=== PATIENT | male | born 1970 | race African-American/Black ===

== ENCOUNTER 2017-05-05 14:25 | Observation (INO) | payer OTHER ==
[2017-05-05] MEDS ORDERED: Sodium Chloride 0.9% 10 ML Syringe FLUSH PRN ×2 (14:42→19:13)
[2017-05-05] MEDS ORDERED: Aspirin 81 MG Tab.Chew PO ONE (14:42)
[2017-05-05] MEDS ORDERED: Nitroglycerin 2% Oint 1 GM UD Packet TOP ONE (14:42)
[2017-05-05] MEDS ORDERED: Sodium Chloride 0.9% 1,000 ML IV SCH (14:45)
--- NOTE | 2017-05-05 14:46 | EDM.PDOC ---
ED HPI GENERAL MEDICAL PROBLEM - General Chief Complaint: Chest Pain Stated Complaint: CHEST PAIN Time Seen by Provider: 05/05/17 14:29 - History of Present Illness INITIAL COMMENTS - FREE TEXT/NARRATIVE: HISTORY AND PHYSICAL: History of present illness: Patient 46-year-old black male no significant past medical history presents with left-sided chest pain that he states he noted this morning he denies clearly associated shortness of breath palpitations nausea vomiting or other concern is no history of cardiac disease no history of hypertension diabetes or hypercholesteremia Review of systems: As per history of present illness and below otherwise all systems reviewed and negative. Past medical history: As per history of present illness and as reviewed below otherwise noncontributory. Surgical history: As per history of present illness and as reviewed below otherwise noncontributory. Social history: No reported history of drug or alcohol abuse. Family history: As per history of present illness and as reviewed below otherwise noncontributory. Physical exam: HEENT: Atraumatic, normocephalic, pupils reactive, negative for conjunctival pallor or scleral icterus, mucous membranes moist, throat clear, neck supple, nontender, trachea midline. Lungs: Clear to auscultation, breath sounds equal bilaterally, chest nontender. Heart: S1S2, regular, negative for clicks, rubs, or JVD. Abdomen: Soft, nondistended, nontender. Negative for masses or hepatosplenomegaly. Negative for costovertebral tenderness. Pelvis: Stable nontender. Genitourinary: Deferred. Rectal: Deferred. Extremities: Atraumatic, negative for cords or calf pain. Neurovascular unremarkable. Neuro: Awake, alert, oriented. Cranial nerves II through XII unremarkable. Cerebellum unremarkable. Motor and sensory unremarkable throughout. Exam nonfocal. Diagnostics: CBC CMP troponin PT/INR d-dimer chest x-ray EKG Therapeutics: IV O2 monitor aspirin 324 mg Nitropaste 1 inch Impression: #1 chest pain Definitive disposition and diagnosis as appropriate pending reevaluation and review of above. chest area Pain Score (Numeric/FACES): 1 - Related Data Allergies Allergy/AdvReac Type Severity Reaction Status Date / Time No Known Allergies Allergy Verified 05/05/17 14:30 Home Meds: Home Meds . [No Known Home Meds] 05/05/17 [History] Past Medical History HEENT History: Reports: Other (See Below) Other HEENT History: Wearing Glasses Cardiovascular History: Reports: High Cholesterol Respiratory History: Reports: None Gastrointestinal History: Reports: None Genitourinary History: Reports: None Musculoskeletal History: Reports: None Neurological History: Reports: None Psychiatric History: Reports: None Endocrine/Metabolic History: Reports: None Hematologic History: Reports: None Immunologic History: Reports: None Oncologic (Cancer) History: Reports: None Dermatologic History: Reports: None - Infectious Disease History Infectious Disease History: Reports: None Social & Family History - Family History Family Medical History: Noncontributory - Tobacco Use Smoking Status *Q: Never Smoker Second Hand Smoke Exposure: No - Caffeine Use Caffeine Use: Reports: Coffee, Tea - Alcohol Use Days Per Week of Alcohol Use: 0 - Recreational Drug Use Recreational Drug Use: No ED ROS GENERAL - Review of Systems Review Of Systems: ROS reveals no pertinent complaints other than HPI. ED EXAM, GENERAL - Physical Exam Exam: See Below (See dictation) Course - Vital Signs Last Recorded V/S: Last Vital Signs Temp 36.6 C 05/05/17 14:31 Pulse 75 05/05/17 14:55 Resp 18 05/05/17 14:55 BP 120/72 05/05/17 14:55 Pulse Ox 97 05/05/17 14:55 - Orders/Labs/Meds Orders: Active Orders 24 hr Category Date Time Status Cardiac Monitoring [RC] . DIRECTED Care 05/05/17 14:39 Active EKG Documentation Completion [RC] STAT Care 05/05/17 14:39 Active Oxygen Therapy, ED [RC] ASDIRECTED Care 05/05/17 14:39 Active Pulse Oximetry [RC] ASDIRECTED Care 05/05/17 14:39 Active Chest 1V Frontal [CR] Stat Exams 05/05/17 14:42 Taken Sodium Chloride 0.9% [Normal Saline] 1,000 ml Med 05/05/17 14:45 Active IV STAT Sodium Chloride 0.9% [Saline Flush] Med 05/05/17 14:42 Active 10 ml FLUSH ASDIRECTED PRN Sodium Chloride 0.9% [Saline Flush] Med 05/05/17 14:42 Active 2.5 ml FLUSH ASDIRECTED PRN Saline Lock Insert [OM.PC] Stat Oth 05/05/17 14:39 Ordered Medication Orders Sodium Chloride (Normal Saline) 1,000 mls @ 125 mls/hr IV STAT AMALIA Last Admin: 05/05/17 14:52 Dose: 125 mls/hr Sodium Chloride (Saline Flush) 10 ml FLUSH ASDIRECTED PRN PRN Reason: Keep Vein Open Last Admin: 05/05/17 14:53 Dose: 10 ml Sodium Chloride (Saline Flush) 2.5 ml FLUSH ASDIRECTED PRN PRN Reason: Keep Vein Open Last Admin: 05/05/17 14:52 Dose: 2.5 ml Labs: Laboratory Tests 05/05/17 05/05/17 05/05/17 Range/Units 14:52 14:52 14:52 WBC 6.80 (4.0-11.0) K/uL RBC 4.82 (4.50-5.90) M/uL Hgb 14.4 (13.0-17.0) g/dL Hct 40.9 (38.0-50.0) % MCV 84.9 (80.0-98.0) fL MCH 29.9 (27.0-32.0) pg MCHC 35.2 (31.0-37.0) g/dL RDW Std Deviation 42.2 (28.0-62.0) fl RDW Coeff of Neha 14 (11.0-15.0) % Plt Count 188 (150-400) K/uL MPV 9.80 (7.40-12.00) fL Neut % (Auto) 30.0 L (48.0-80.0) % Lymph % (Auto) 59.4 H (16.0-40.0) % [place] % (Auto) 6.8 (0.0-15.0) % Eos % (Auto) 3.5 (0.0-7.0) % Baso % (Auto) 0.3 (0.0-1.5) % Neut # (Auto) 2.0 (1.4-5.7) K/uL Lymph # (Auto) 4.0 H (0.6-2.4) K/uL [place] # (Auto) 0.5 (0.0-0.8) K/uL Eos # (Auto) 0.2 (0.0-0.7) K/uL Baso # (Auto) 0.0 (0.0-0.1) K/uL INR 0.99 (0.86-1.11) D-Dimer, Quantitative (0.0-0.52) mg/LFEU Sodium 138 (136-146) mmol/L Potassium 4.2 (3.5-5.1) mmol/L Chloride 106 (98-110) mmol/L Carbon Dioxide 22 (21-31) mmol/L BUN 11 (6.0-23.0) mg/dL Creatinine 1.0 (0.6-1.5) mg/dL Est Cr Clr Drug Dosing 92.30 mL/min Estimated GFR (MDRD) > 60.0 ml/min Glucose 130 H (60-110) mg/dL Calcium 8.9 (8.8-10.8) mg/dL Total Bilirubin 0.5 (0.1-1.5) mg/dL AST 17 (5-40) IU/L ALT 28 (8-54) IU/L Alkaline Phosphatase 71 (40-150) Troponin I (0.0-0.29) NG/ML Total Protein 7.4 (6.0-8.0) g/dL Albumin 4.1 (3.5-5.0) g/dL Globulin 3.3 (2.0-3.5) g/dL Albumin/Globulin Ratio 1.2 L (1.3-2.8) 05/05/17 05/05/17 Range/Units 14:52 14:52 WBC (4.0-11.0) K/uL RBC (4.50-5.90) M/uL Hgb (13.0-17.0) g/dL Hct (38.0-50.0) % MCV (80.0-98.0) fL MCH (27.0-32.0) pg MCHC (31.0-37.0) g/dL RDW Std Deviation (28.0-62.0) fl RDW Coeff of Neha (11.0-15.0) % Plt Count (150-400) K/uL MPV (7.40-12.00) fL Neut % (Auto) (48.0-80.0) % Lymph % (Auto) (16.0-40.0) % [place] % (Auto) (0.0-15.0) % Eos % (Auto) (0.0-7.0) % Baso % (Auto) (0.0-1.5) % Neut # (Auto) (1.4-5.7) K/uL Lymph # (Auto) (0.6-2.4) K/uL [place] # (Auto) (0.0-0.8) K/uL Eos # (Auto) (0.0-0.7) K/uL Baso # (Auto) (0.0-0.1) K/uL INR (0.86-1.11) D-Dimer, Quantitative < 0.19 (0.0-0.52) mg/LFEU Sodium (136-146) mmol/L Potassium (3.5-5.1) mmol/L Chloride (98-110) mmol/L Carbon Dioxide (21-31) mmol/L BUN (6.0-23.0) mg/dL Creatinine (0.6-1.5) mg/dL Est Cr Clr Drug Dosing mL/min Estimated GFR (MDRD) ml/min Glucose (60-110) mg/dL Calcium (8.8-10.8) mg/dL Total Bilirubin (0.1-1.5) mg/dL AST (5-40) IU/L ALT (8-54) IU/L Alkaline Phosphatase (40-150) Troponin I < 0.10 (0.0-0.29) NG/ML Total Protein (6.0-8.0) g/dL Albumin (3.5-5.0) g/dL Globulin (2.0-3.5) g/dL Albumin/Globulin Ratio (1.3-2.8) Meds: Medications Generic Name Dose Route Start Last Admin Trade Name Freq PRN Reason Stop Dose Admin Sodium Chloride 1,000 mls @ 125 mls/hr 05/05/17 14:45 05/05/17 14:52 Normal Saline IV 125 mls/hr STAT AMALIA Administration Sodium Chloride 10 ml 05/05/17 14:42 05/05/17 14:53 Saline Flush FLUSH 10 ml ASDIRECTED PRN Administration Keep Vein Open Sodium Chloride 2.5 ml 05/05/17 14:42 05/05/17 14:52 Saline Flush FLUSH 2.5 ml ASDIRECTED PRN Administration Keep Vein Open Discontinued Medications Generic Name Dose Route Start Last Admin Trade Name Freq PRN Reason Stop Dose Admin Aspirin 324 mg 05/05/17 14:42 05/05/17 14:52 Aspirin PO 05/05/17 14:43 324 mg ONETIME ONE Administration Nitroglycerin 1 gm 05/05/17 14:42 05/05/17 14:52 Nitro-Bid 2% TOP 05/05/17 14:43 1 gm ONETIME ONE Administration Departure - Departure Time of Disposition: 15:30 Disposition: Refer to Observation Condition: Good Clinical Impression: Chest pain - Discharge Information Forms: ED Department Discharge - My Orders Last 24 Hours: My Active Orders 05/05/17 14:39 Cardiac Monitoring [RC] . DIRECTED EKG Documentation Completion [RC] STAT Oxygen Therapy, ED [RC] ASDIRECTED Pulse Oximetry [RC] ASDIRECTED Saline Lock Insert [OM.PC] Stat 05/05/17 14:42 Chest 1V Frontal [CR] Stat Sodium Chloride 0.9% [Saline Flush] 10 ml FLUSH ASDIRECTED PRN Sodium Chloride 0.9% [Saline Flush] 2.5 ml FLUSH ASDIRECTED PRN 05/05/17 14:45 Sodium Chloride 0.9% [Normal Saline] 1,000 ml IV STAT - Assessment/Plan Last 24 Hours: My Active Orders 05/05/17 14:39 Cardiac Monitoring [RC] . DIRECTED EKG Documentation Completion [RC] STAT Oxygen Therapy, ED [RC] ASDIRECTED Pulse Oximetry [RC] ASDIRECTED Saline Lock Insert [OM.PC] Stat 05/05/17 14:42 Chest 1V Frontal [CR] Stat Sodium Chloride 0.9% [Saline Flush] 10 ml FLUSH ASDIRECTED PRN Sodium Chloride 0.9% [Saline Flush] 2.5 ml FLUSH ASDIRECTED PRN 05/05/17 14:45 Sodium Chloride 0.9% [Normal Saline] 1,000 ml IV STAT
[2017-05-05] MEDS: Sodium Chloride 0.9% 2.5 ML Syringe FLUSH PRN ×2 (14:52→19:31)
[2017-05-05 15:22] LABS: CHLORIDE,CL 106 mmol/L (98-110); SODIUM,NA 138 mmol/L (136-146)
--- NOTE | 2017-05-05 17:52 | PCM.HP ---
H&P History of Present Illness - General Date of Service: 05/05/17 Admit Problem/Dx: Admission Diagnosis/Problem Admission Diagnosis/Problem Chest pain Source of Information: Patient, Provider - History of Present Illness Initial Comments - Free Text/Narative: He woke up several hours before coming to the ED because he had left sided chest pain. He thought that maybe he slept wrong. He has not chest pain now. He was seen in the ED. EKG showed NSR with early repolarization . Troponin was normal. He was treated with nitroglycerin . He is pain free now. chest area Pain Score (Numeric/FACES): 1 - Related Data Allergies/Adverse Reactions: Allergies Allergy/AdvReac Type Severity Reaction Status Date / Time No Known Allergies Allergy Verified 05/05/17 14:30 Home Medications: Home Meds . [No Known Home Meds] 05/05/17 [History] Past Medical History HEENT History: Reports: Impaired Vision, Other (See Below) Other HEENT History: Wearing Glasses Cardiovascular History: Reports: High Cholesterol Respiratory History: Reports: None Gastrointestinal History: Reports: None Genitourinary History: Reports: None Musculoskeletal History: Reports: None Neurological History: Reports: None Psychiatric History: Reports: None Endocrine/Metabolic History: Reports: None. Denies: Diabetes, Type I, Diabetes , Type II Hematologic History: Reports: None Immunologic History: Reports: None Oncologic (Cancer) History: Reports: None Dermatologic History: Reports: None - Infectious Disease History Infectious Disease History: Reports: Chicken Pox - Past Surgical History Cardiovascular Surgical History: Reports: None GI Surgical History: Reports: None Social & Family History - Family History Family Medical History: Noncontributory Cardiac: Reports: Hypertension : Reports: Other (See Below) Other Family History: enlarged prostate Neurological: Reports: CVA Endocrine/Metabolic: Reports: Other (See Below) Other Endocrine/Metabolic Family History: DM, type unknown - Tobacco Use Smoking Status *Q: Never Smoker Second Hand Smoke Exposure: No - Caffeine Use Caffeine Use: Reports: Coffee, Energy Drinks, Tea Caffeine Use Comment: "Once in a while" - Alcohol Use Alcohol Use History: No Days Per Week of Alcohol Use: 0 - Recreational Drug Use Recreational Drug Use: No H&P Review of Systems - Review of Systems: Review Of Systems: See Below General: Denies: Fever, Chills, Weakness Pulmonary: Denies: Shortness of Breath, Cough, Sputum Cardiovascular: Reports: Chest Pain. Denies: Palpitations, Edema Gastrointestinal: Denies: Abdominal Pain, Anorexia, Black Stool, Bloody Stool, Decreased Appetite, Difficulty Swallowing, Hematemesis, Stool Incontinence, Vomiting Genitourinary: Denies: Dysuria, Frequency, Burning, Hematuria Skin: Denies: Cyanosis Psychiatric: Denies: Confusion Neurological: Denies: Seizure Exam - Exam Exam: See Below - Vital Signs Vital Signs: Last Vital Signs Temp 97.9 F 05/05/17 16:30 Pulse 59 L 05/05/17 16:30 Resp 16 05/05/17 16:30 BP 125/64 05/05/17 16:30 Pulse Ox 97 05/05/17 16:30 Weight: 103.147 kg - Exam General: Alert, Oriented, Cooperative HEENT: EOMI, Mucosa Moist & [place] Neck: Supple, Trachea Midline Lungs: Clear to Auscultation, Normal Respiratory Effort Cardiovascular: Regular Rate, Regular Rhythm Abdomen: Soft. No: Tenderness (Male) Exam: Deferred Rectal (Males) Exam: Deferred Extremities: No: Edema Neurological: Cranial Nerves Intact, Normal Speech Neuro Extensive - Motor, Sensory, Reflexes: No: Facial palsy (L), Facial Palsy ( R), Hemeplagia (R), Hemeplagia (L) - Patient Data Result Diagrams: 05/05/17 14:52 05/05/17 14:52 Pedro Results Last 24 hrs: CXR: normal; EKG: NSR with early repolarization pattern *Q Meaningful Use (ADM) - VTE *Q VTE Criteria *Q: - Stroke *Q Stroke Criteria *Q: - AMI *Q AMI Criteria *Q: - Problem List (1) Chest pain SNOMED Code(s): 12489109 ICD Code: R07.9 - CHEST PAIN, UNSPECIFIED Status: Acute Current Visit: Yes Problem List Initiated/Reviewed/Updated: Yes Orders Last 24hrs: Active Orders 24 hr Category Date Time Status Heart Healthy Diet [DIET] Diet 05/05/17 Dinner Active Medication Orders Sodium Chloride (Normal Saline) 1,000 mls @ 125 mls/hr IV STAT AMALIA Last Admin: 05/05/17 14:52 Dose: 125 mls/hr Sodium Chloride (Saline Flush) 10 ml FLUSH ASDIRECTED PRN PRN Reason: Keep Vein Open Last Admin: 05/05/17 14:53 Dose: 10 ml Sodium Chloride (Saline Flush) 2.5 ml FLUSH ASDIRECTED PRN PRN Reason: Keep Vein Open Last Admin: 05/05/17 14:52 Dose: 2.5 ml Assessment/Plan Comment:: observation troponins likely discharge tomorrow with outpatient stress test Sam Petty MD
[2017-05-05] MEDS ORDERED: Acetaminophen 325 MG Tab PO PRN (17:54)
[2017-05-05] MEDS ORDERED: Temazepam 15 MG Cap PO PRN (17:54)
[2017-05-05] MEDS ORDERED: Sodium Chloride 0.9% 2.5 ML Syringe FLUSH PRN (19:13)
[2017-05-06 09:09] VITALS: BP 112/64
--- NOTE | 2017-05-06 10:30 | PCM.DCSUM1 ---
Discharge Summary - Hospital Course Brief History: This 46 [place] old male with pmh of hypercholesterolemia taking fish oil and hx of elevated BS, presented to the ED several hours after he woke up with L sided chest pain. The pain did not radiate , he had no diaphoresis or dyspnea. He thought that maybe he slept wrong. He had no chest pain on presentation to the ED. In the ED, EKG showed NSR with early repolarization . Troponin negative. He was treated with nitroglycerin. He was admitted for observation chest pain rule out ACS. PCP, Dr Ortiz - Discharge Data Discharge Date: 05/06/17 Discharge Disposition: Home, Self-Care 01 Condition: Good - Discharge Diagnosis/Problem(s) (1) Chest pain SNOMED Code(s): 24222048 ICD Code: R07.9 - CHEST PAIN, UNSPECIFIED Status: Acute Current Visit: Yes - Patient Instructions Diet: Heart Healthy Diet (low carb) Activity: No Strenuous Activities (until after stress test, work release provided.) Driving: [address] Drive Today Showering/Bathing: March Shower Notify Provider of: Fever, Increased Pain, Swelling and Redness, Drainage, Nausea and/or Vomiting - Discharge Plan Prescriptions/Med Rec: Aspirin 81 mg PO DAILY #60 tab.chew Home Medications: Home Meds Aspirin 81 mg PO DAILY #60 tab.chew 05/06/17 [Rx] Patient Handouts: Chest Wall Pain, [id number], Aspirin, ASA oral tablets Referrals: Soni Velez DO [Physician] - (Follow up in 1 week as well as with clinical unit educatorIvis, at [place], due to borderline Diabetes) - Discharge Summary/Plan Comment DC Time >30 min.: No Discharge Summary/Plan Comment: Discharge Diagnoses: Chest pain-resolved Hypercholesterolemia Borderline DM type 2- A1c 6.3 Mikael was admitted and monitored on telemetry, which has remained NSR. Troponins all negative ruling out ACS. He has been pain free during admission. Cholesterol is borderline, he is using diet and Fish Oil with the guidance of Dr. Velez. A1c is borderline, 6.3. He was educated on diet and exercise. I will get him to see DM educator to help funeral counselor on diet. I will arrange outpatient stress test with Dr. Laws. He is to return to work light work until after stress test. He is to return to ED or clinic if concerns should arise. - General Info Date of Service: 05/06/17 Admission Dx/Problem (Free Text: Admission Diagnosis/Problem Admission Diagnosis/Problem Chest pain Subjective Update: Denies any more chest pain today. Has no other complaints. Functional Status: Reports: pain controlled, tolerating diet, ambulating, urinating - Review of Systems General: Reports: No Symptoms. Denies: Fever HEENT: Reports: no symptoms Pulmonary: Reports: no symptoms. Denies: shortness of breath, cough, sputum Cardiovascular: Reports: No Symptoms. Denies: Chest Pain, Palpitations, Edema Gastrointestinal: Reports: No symptoms. Denies: Abdominal pain, Nausea, Vomiting Genitourinary: Reports: no symptoms Musculoskeletal: Reports: no symptoms Skin: Reports: no symptoms Psychiatric: Reports: no symptoms - Patient Data Vitals - Most Recent: Last Vital Signs Temp 98.3 F 05/06/17 09:00 Pulse 69 05/06/17 09:00 Resp 16 05/06/17 09:00 BP 112/64 05/06/17 09:00 Pulse Ox 96 05/06/17 09:00 Weight - Most Recent: 103.147 kg I&O - Last 24 hours: Intake & Output 05/05/17 05/06/17 05/06/17 22:59 06:59 14:59 Intake Total 382 400 Output Total 390 Balance 382 10 Lab Results - Last 24 hrs: Laboratory Results - last 24 hr 05/05/17 05/06/17 05/06/17 Range/Units 20:51 03:07 03:07 Hemoglobin A1c (0.0-6.0) % Troponin I < 0.10 < 0.10 (0.0-0.29) NG/ML Triglycerides 127 (10-190) mg/dL Cholesterol 193 (131-240) mg/dL LDL Cholesterol, Calc 137 (60-180) mg/dL VLDL Cholesterol 25 (5-55) mg/dL HDL Cholesterol 31 L (40-80) mg/dL Cholesterol/HDL Ratio 6.2 H (3.3-6.0) 05/06/17 Range/Units 03:07 Hemoglobin A1c 6.3 H (0.0-6.0) % Troponin I (0.0-0.29) NG/ML Triglycerides (10-190) mg/dL Cholesterol (131-240) mg/dL LDL Cholesterol, Calc (60-180) mg/dL VLDL Cholesterol (5-55) mg/dL HDL Cholesterol (40-80) mg/dL Cholesterol/HDL Ratio (3.3-6.0) Med Orders - Current: Current Medications Acetaminophen (Tylenol) 650 mg PO Q4H PRN PRN Reason: Pain (Mild 1-3)/fever Sodium Chloride (Saline Flush) 10 ml FLUSH ASDIRECTED PRN PRN Reason: Keep Vein Open Last Admin: 05/05/17 14:53 Dose: 10 ml Sodium Chloride (Saline Flush) 2.5 ml FLUSH ASDIRECTED PRN PRN Reason: Keep Vein Open Last Admin: 05/05/17 19:31 Dose: 2.5 ml Sodium Chloride (Saline Flush) 10 ml FLUSH ASDIRECTED PRN PRN Reason: Keep Vein Open Sodium Chloride (Saline Flush) 2.5 ml FLUSH ASDIRECTED PRN PRN Reason: Keep Vein Open Temazepam (Restoril) 15 mg PO BEDTIME PRN PRN Reason: Sleep Discontinued Medications Aspirin (Aspirin) 324 mg PO ONETIME ONE Stop: 05/05/17 14:43 Last Admin: 05/05/17 14:52 Dose: 324 mg Sodium Chloride (Normal Saline) 1,000 mls @ 125 mls/hr IV STAT AMALIA Last Admin: 05/05/17 14:52 Dose: 125 mls/hr Nitroglycerin (Nitro-Bid 2%) 1 gm TOP ONETIME ONE Stop: 05/05/17 14:43 Last Admin: 05/05/17 14:52 Dose: 1 gm - Exam Quality Assessment: Reports: DVT prophylaxis. Denies: supplemental oxygen General: Reports: alert, oriented, cooperative, no acute distress HEENT: Reports: Pupils equal, Pupils reactive, EOMI, Mucous membr. moist/pink Lungs: Reports: Clear to auscultation, Normal respiratory effort Cardiovascular: Reports: Regular Rate, Regular Rhythm, No Murmurs, Other (no chest wall tenderness) Abdomen: Reports: bowel sounds present, soft, no tenderness, no distension Extremities: Reports: no edema, normal pulses Psy/Mental Status: Reports: alert, normal affect, normal mood *Q Meaningful Use (DIS) - VTE *Q VTE Criteria *Q: - Stroke *Q Stroke Criteria *Q: - AMI *Q AMI Criteria *Q:
--- NOTE | 2017-05-06 13:22 | CR ---
EXAM DATE: 05/06/17 PATIENT'S AGE: 46 Patient: ARLET DOMINIQUE Facility: [place], [place] Site . Site : [id number] Study: XRay Chest [id number]/25/[id number] 3:13:06 PM Ordering Physician: Joseph Truong Final Report: INDICATION: Chest pain. TECHNIQUE: AP portable chest. FINDINGS: Clear lungs. Normal heart size and pulmonary vascularity. Normal included skeletal thorax. IMPRESSION: Normal portable chest. Dictated by Rey Lai MD @ 05/05/2017 3:23:34 PM Dictated by: Rey Lai MD @ 05/05/2017 15:23:40 (Electronic Signature) Report Signed by Proxy. [facility] JO[facility] MEDICAL CENTERJose
== END 2017-05-06 11:10 | disposition home or self-care (01) ==
LOC: MW.ED 14:25 → UNDOADMOB 15:31 → MW.MS 15:31
PROVIDERS: ADMIT Family Medicine; ATTEND Family Medicine
DX: R07.9 Chest pain, unspecified (principal); E78.00 Pure hypercholesterolemia, unspecified; R73.03 Prediabetes; Z79.82 Long term (current) use of aspirin
CPT/HCPCS: 36415; 71010; 80053; 80061; 83036; 84484; 85025; 85379; 85610; 93005; 96361; 99285; A9270; G0378; J7040; 96360; 99284

== ENCOUNTER 2024-03-12 18:37 | Emergency (ER) | payer SELFPAY | END 2024-03-12 19:20 | disposition left against medical advice (07) | LOC: MW.ED 18:37 | DX: Z53.21 Procedure and treatment not carried out due to patient leaving prior to being seen by health care provider (principal) ==